=== PATIENT | male | born 1965 | race Caucasian/White ===

== ENCOUNTER 2019-07-04 05:35 | Day surgery (SDC) | payer OTHER ==
[~2019-07-04] VITALS: Ht 162.6 cm; Wt 92.5 kg
[2019-07-04] MEDS ORDERED: CEFAZOLIN SOD 1 GM in D5W 50 ML IV ONE (07:00)
[2019-07-04] MEDS ORDERED: PROPOFOL 200MG/ 20ML VIAL (DIPRIVAN) IV ONE (08:00)
[2019-07-04] MEDS ORDERED: SUCCINYLCHOLINE CHLORIDE 20 MG/ML(QUELICIN) IVP ONE (08:00)
[2019-07-04] MEDS ORDERED: SEVOFLURANE 15 MIN GAS INH ONE (08:00)
[2019-07-04] MEDS ORDERED: ONDANSETRON HCL 4 MG/2 ML VIAL IVP ONE (08:00)
[2019-07-04] MEDS ORDERED: MIDAZOLAM HCL 5 MG/5 ML VIAL IVP ONE (08:00)
[2019-07-04] MEDS ORDERED: LR 1,000 ML IV.SOLN IV ONE (08:00)
[2019-07-04] MEDS ORDERED: D5/0.45 NS 1,000 ML IV.SOLN IV ONE (08:00)
[2019-07-04] MEDS ORDERED: fentaNYL CITRATE 250 MCG/5 ML AMP IV ONE (08:00)
[2019-07-04] MEDS ORDERED: BUPIVACAINE /EPINEPHRINE/PF 0.25% 30 ML VIAL INJ ONE (08:00)
[2019-07-04] MEDS ORDERED: LR 1,000 ML IV SCH (08:48)
[2019-07-04] MEDS ORDERED: MORPHINE 4 MG/ML INJ. SYRINGE IVP PRN ×3 (09:00)
[2019-07-04] MEDS ORDERED: METOCLOPRAMIDE HCL 10 MG/2 ML VIAL IVP PRN (09:00)
[2019-07-04] MEDS ORDERED: D5/0.45 NS 1,000 ML IV SCH (09:19)
[2019-07-04] MEDS ORDERED: HYDROcodone/ACETAMIN 5-325 MG TAB (NORCO/ VICODIN) PO PRN ×2 (09:30)
[2019-07-04] MEDS ORDERED: HYDROmorphone 1 MG INJ. 1 MG/ML AMPUL IVP PRN (09:30)
[2019-07-04 10:45] VITALS: BP_SYST 128
== END 2019-07-04 12:30 | disposition home or self-care (01) ==
LOC: SDS 05:35 → SMU 05:35 → SDS 12:30
PROVIDERS: ATTEND Colon & Rectal Surgery
DX: K62.89 Other specified diseases of anus and rectum (principal); C21.0 Malignant neoplasm of anus, unspecified; I10 Essential (primary) hypertension; G47.30 Sleep apnea, unspecified; E78.5 Hyperlipidemia, unspecified; E11.9 Type 2 diabetes mellitus without complications; E66.01 Morbid (severe) obesity due to excess calories; Z68.35 Body mass index [BMI] 35.0-35.9, adult
CPT/HCPCS: 45172; 88309; J0330; J0690; J2250; J2405; J2704; J3010; J3490; J7060; J7120; 88305

== ENCOUNTER 2019-08-02 10:43 | Day surgery (SDC) | payer OTHER ==
[~2019-08-02] VITALS: Ht 162.6 cm; Wt 92.5 kg
[2019-08-02] MEDS ORDERED: CEFAZOLIN SOD 1 GM in D5W 50 ML IV ONE (11:45)
[2019-08-02] MEDS ORDERED: metroNIDAZOLE 500 mg/NS 100 ML PREMIX IV ONE (12:15)
[2019-08-02] MEDS ORDERED: cefOXitin SODIUM 2 GM in D5W 100 ML IV ONE (12:15)
[2019-08-02] MEDS ORDERED: ONDANSETRON HCL 4 MG/2 ML VIAL IVP PRN (12:45)
[2019-08-02] MEDS ORDERED: METOCLOPRAMIDE HCL 10 MG/2 ML VIAL IVP PRN (12:45)
[2019-08-02] MEDS ORDERED: MORPHINE 4 MG/ML INJ. SYRINGE IVP PRN ×2 (12:45)
[2019-08-02] MEDS ORDERED: KETOROLAC TROMETHAMINE 30 MG VIAL IVP PRN (12:45)
[2019-08-02] MEDS ORDERED: hydrALAZINE HCL 20 MG/ML VIAL IVP PRN (12:45)
[2019-08-02] MEDS ORDERED: D5/0.45 NS 1,000 ML IV SCH (12:52)
[2019-08-02] MEDS ORDERED: HYDROcodone/ACETAMIN 5-325 MG TAB (NORCO/ VICODIN) PO PRN ×2 (13:00)
[2019-08-02] MEDS ORDERED: HYDROmorphone 1 MG INJ. 1 MG/ML AMPUL IVP PRN (13:00)
[2019-08-02] MEDS ORDERED: MIDAZOLAM HCL 5 MG/ML VIAL (VERSED) IV ONE (13:07)
[2019-08-02] MEDS ORDERED: SEVOFLURANE 15 MIN GAS INH ONE (13:07)
[2019-08-02] MEDS ORDERED: LR 1,000 ML IV.SOLN IV ONE (13:07)
[2019-08-02] MEDS ORDERED: PROPOFOL 200MG/ 20ML VIAL (DIPRIVAN) IV ONE (13:07)
[2019-08-02] MEDS ORDERED: BUPIVACAINE /EPINEPHRINE/PF 0.25% 30 ML VIAL INJ ONE (13:07)
[2019-08-02] MEDS ORDERED: fentaNYL CITRATE/PF 100 MCG/2 ML AMP ONE (13:07)
[2019-08-02 14:01] VITALS: BP_SYST 116
== END 2019-08-02 15:30 | disposition home or self-care (01) ==
LOC: SDS 10:43
PROVIDERS: ATTEND Colon & Rectal Surgery
DX: K62.89 Other specified diseases of anus and rectum (principal); I10 Essential (primary) hypertension; E11.319 Type 2 diabetes mellitus with unspecified diabetic retinopathy without macular edema; E78.1 Pure hyperglyceridemia; E66.01 Morbid (severe) obesity due to excess calories; G47.30 Sleep apnea, unspecified; Z85.048 Personal history of other malignant neoplasm of rectum, rectosigmoid junction, and anus; Z79.899 Other long term (current) drug therapy
CPT/HCPCS: 46050; 82962; J0694; J2250; J2704; J3010; J3490 ×2; J7060; J7120; J0690